=== PATIENT | female | born 1995 | race Caucasian/White ===

== ENCOUNTER 2017-11-28 17:14 | Emergency (ER) | payer MEDICAID ==
[~2017-11-28] VITALS: Ht 162.6 cm; Wt 59.9 kg
[2017-11-28 17:26] VITALS: Ht 162.6 cm; Wt 59.9 kg
[2017-11-28 18:37] VITALS: BP 123/77
== END 2017-11-28 18:37 | disposition home or self-care (01) ==
LOC: ED 17:14
DX: G51.0 Bell's palsy (principal)